=== PATIENT | female | born 1980 | race Caucasian/White ===

== ENCOUNTER 2017-12-31 16:18 | Emergency (ER) | payer MEDICAID, SELFPAY ==
[2017-12-31 16:29] VITALS: BP 115/71; PULSE 118; RESP 18; TEMP 36.8; O2SAT 98
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
--- NOTE | 2017-12-31 17:25 | DI.RPTCT_ITS ---
SYMPTOM/DIAGNOSIS: [facility] CT HEAD AND CERVICAL SPINE: CRANIAL CT: A noncontrast enhanced exam was carried out. There was no evidence of an intra or extra axial hemorrhage. The ventricles are normal. There is no skull fracture. The sinuses are normal. There is no evidence of a mastoid effusion. The soft tissues are unremarkable. SUMMARY: No acute intracranial abnormality is identified. C-SPINE CT: There is no evidence of an acute fracture. There is some reversal of the normal cervical lordosis. There is no evidence of a dislocation. There is no evidence of spinal stenosis. The lung apices are normal. Incidental discovery was made of multiple palatine tonsil calcifications felt to be consistent with tonsilloliths. This finding usually represents the residua of a previous tonsillitis. SUMMARY: Cervical kyphosis likely on the basis of muscular spasm. There is no evidence of an acute fracture or subluxation.
[2017-12-31] MEDS: Ketorolac 60 MG/2 ML VIAL IM (17:31)
[2017-12-31] MEDS: Diazepam 5 MG TAB PO (19:50)
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
[2017-12-31] MEDS: Acetaminophen 500 MG TAB 1000 MG PO (19:51)
[2017-12-31 20:03] VITALS: BP 95/73; PULSE 86; RESP 16; TEMP 37; O2SAT 100
== END 2017-12-31 20:04 | disposition home or self-care (01) ==
PROVIDERS: Emergency Provider Student in an Organized Health Care Education/Training Program; PCP Nurse Practitioner Family
DX: S06.0X0A Concussion without loss of consciousness, initial encounter (principal); S13.4XXA Sprain of ligaments of cervical spine, initial encounter; V49.40XA Driver injured in collision with unspecified motor vehicles in traffic accident, initial encounter; R40.2412 Glasgow coma scale score 13-15, at arrival to emergency department
CPT/HCPCS: 96372; 99285; 70450; 72125; 99283; J1885

== ENCOUNTER 2018-04-24 11:35 | Emergency (ER) | payer MEDICAID, SELFPAY ==
[2018-04-24] VITALS (13 sets, daily range): BP systolic 108–121; BP diastolic 44–75; PULSE 84–107; RESP 11–20; TEMP 36.8; O2SAT 97–100
--- NOTE | 2018-04-24 12:22 | DI.US_ITS ---
SYMPTOMS/DIAGNOSIS: PELVIC CRAMPING, PAIN PELVIC ULTRASOUND: Pelvic ultrasound was performed transabdominally and transvaginally. Please see the accompanying data sheet for measurements of the pelvic structures. Limited scanning of the kidneys is unremarkable. No free fluid identified in the cul-de- sac. There is a mildly heterogeneous appearance of the endometrial stripe which measures about 14 mm in thickness. The ovaries have a normal follicular appearance except for an 18 mm in diameter complex cyst of the left ovary which may represent a hemorrhagic cyst measuring about 18 mm in diameter. CONCLUSION: Mildly heterogeneous endometrial stripe which is a nonspecific finding, probable hemorrhagic left ovarian cyst. Follow up ultrasound recommended in 4-6 weeks.
[2018-04-24] MEDS: Normal Saline 1,000 ML 1000 ML IV (12:35)
--- NOTE | 2018-04-24 12:47 | W.ED.GENAD ---
Discharge Plan Disposition Patient Disposition: HOME Condition: Stable Discharge Details Chief Complaint: Abd Prob Clinical Impression: Pelvic pain, Menorrhagia Primary Care Provider: Margarita Odonnell ED Provider: Ken Cifuentes Home Meds and New Rx's Prescriptions: Continue prochlorperazine maleate 5 MG tablet 1 - 2 tab PO Q8H PRN Qty: 60 RF: 0 amitriptyline 25 MG tablet 25 mg PO HS Qty: 30 RF: 3 cyclobenzaprine 10 mg tablet 10 mg PO hs prn Qty: 30 RF: 3 indomethacin 25 mg capsule 25 mg PO Q8 hours PRN Qty: 30 RF: 2 Discharge Instructions Instructions: Pelvic Pain in Women (ED) Additional Instructions: Return immediately to the emergency department for any significant change in your symptoms, fever chills, or further concerns you may have. Otherwise you should immediately call women's wellness to arrange an appointment for follow-up. Due to medication she received in the emergency department please do not take any further cyclobenzaprine/Flexeril or indomethacin until after midnight this evening. After that point you may continue to take your normal prescribed medications. Stand Alone Forms: Work Release Referrals: Marga Shrestha MD [ [facility] STAFF PHYSICIAN] - (Call the office this afternoon for arrangement of close follow-up appointment) Medical Decision Making Patient presenting to the emergency department for chief complaint of pelvic cramping. Patient states that this is been going on for years and she has seen Dr. Shrestha for with recommendation of partial hysterectomy and concern for possible endometriosis. Patient states heavy menses that ended approximately a week ago and over the past couple days she has had worsening discomfort. She has taken [id number] pain medications, indomethcin, along with Flexeril and has had no relief of symptoms. Physical exam shows lower pelvic tenderness. Patient denies any vaginal symptoms so vaginal exam was deferred at this time. Plan to perform ultrasound imaging of the ovaries and female anatomy, check labs, and give diazepam for cramping and morphine as needed for pain. Labs are reviewed and showed mild decrease of magnesium and otherwise unremarkable. Ultrasound shows some endometrial thickening, mild free fluid, and left luteal cyst. Given that patient has followed up with Dr. Shrestha for this in the past attempted to contact her in regards to the patient. Spoke with Dr. O'Miguel Ángel whom stated patient should remain on NSAID therapy and continue to take cyclobenzaprine as needed . She also requested that patient call the office to arrange close follow-up appointment. Reassessed patient and stated continued discomfort so single dose of 15 mg ketorolac was given. Patient otherwise stable with no new or worsening symptoms patient informed to return for any severe change in condition, fever chills, or further concerns otherwise to follow-up with women's wellness for further treatment. After discussion of diagnosis and plan of care patient has no further needs, questions, or concerns and states clear understanding to return to the emergency department for any worsening symptoms. HPI General Mode of arrival: ambulatory. Date/Time Provider Initiated Documentation: 04/24/18 11:36. Limitations to Documentation: no limitations. Information obtained by: patient and RN notes reviewed. History of Present Illness 37 year old F presents to the emergency department with the chief complaint of pelvic cramping, described as severe and similar to prior episodes, with intensity rated at 8. Quality is described as sharp, and is localized to the abdomen and pelvis. Patient reports radiation to back. Patient started experiencing this day(s) (2) and it has been intermittent. No relieving factors improve symptom(s), No exacerbating factors reported . Patient notes no other symptoms.. Patient did receive the following treatments prior to arrival, NSAID and other (flexeril) Related Data Home Medications Medication Instructions Recorded Confirmed prochlorperazine maleate 1 - 2 tab PO Q8H PRN #60 tab-cap 11/07/16 04/24/18 amitriptyline 25 mg PO HS #30 tab-cap 09/10/17 cyclobenzaprine 10 mg tablet 10 mg PO hs prn #30 tab-cap 02/10/18 04/24/18 indomethacin 25 mg capsule 25 mg PO Q8 hours PRN #30 tab-cap 02/10/18 04/24/18 Previous Rx's Medication Instructions Recorded amitriptyline 25 mg PO HS #30 tab-cap 09/10/17 cyclobenzaprine 10 mg tablet 10 mg PO hs prn #30 tab-cap 02/10/18 indomethacin 25 mg capsule 25 mg PO Q8 hours PRN #30 tab-cap 02/10/18 Allergies Allergy/AdvReac Type Severity Reaction Status Date / Time No Known Allergies Allergy Unverified 04/24/18 11:43 General Stated Complaint: Abd Prob ALONDRA: 3 Review of Systems Constitutional Denies chills and Denies fever(s) Cardiovascular Denies chest pain and Denies dyspnea Respiratory Denies dyspnea Gastrointestinal Reports as per HPI, Reports abdominal pain, Denies melena, Denies change in bowel habits, Denies constipation, Denies diarrhea, Denies nausea and Denies vomiting Genitourinary Reports as per HPI, Reports abnormal menses (heavy menses), Denies hematuria, Denies urinary frequency, Denies sexual dysfunction, Denies urinary incontinence, Denies urinary hesitancy, Denies urinary urgency, Denies vaginal discharge and Denies vaginal dryness Integumentary/Breasts Denies rash PFSH Anxiety Arthritis Attention deficit disorder Chronic back pain Depression Dysmenorrhea History of drug use Hx of abnormal cervical Pap smear Migraine Tobacco use Family History Other Diabetes Heart disease Myocardial infarction Open Carpal Tunnel release Family History Other Diabetes Heart disease Myocardial infarction Medical History Anxiety Arthritis Attention deficit disorder Chronic back pain Depression Dysmenorrhea History of drug use Hx of abnormal cervical Pap smear Migraine Tobacco use Social History household members: significant other number of children: 1 frequency: 1-2 times per week duration: 30-45 minutes/day Smoking/Tobacco Use Status: Current every day alcohol intake: never substance use type: marijuana seatbelt use: always Surgical History Open Carpal Tunnel release Social History household members: significant other number of children: 1 frequency: 1-2 times per week duration: 30-45 minutes/day Smoking/Tobacco Use Status: Current every day alcohol intake: never substance use type: marijuana seatbelt use: always Exam Const General: cooperative Orientation: alert, awake and oriented x3 Resp Effort & Inspection: normal respiratory effort and able to speak in complete sentences Auscultation: clear to auscultation bilaterally Cardio Rate: regular rate Rhythm: regular rhythm Heart Sounds: S1 normal and S2 normal GI Inspection: normal to inspection Palpation: soft, no hepatosplenomegaly, not firm, no guarding, no masses, no pulsatile masses, not rigid, no splenomegaly and tender suprapubicly; not at McBurney's point and Huffman's sign negative Auscultation: normal bowel sounds Back/Spine/Pelvis Back: no CVA tenderness Neuro General: alert, awake, oriented x3, gait normal and moves all extremities Course Vital Signs Temperature 36.8 C 04/24/18 11:39 Pulse 107 H 04/24/18 11:39 Respiratory Rate 18 04/24/18 11:39 Blood Pressure 121/71 04/24/18 11:39 Pulse Oximetry 100 04/24/18 11:39 Temperature 36.8 C 04/24/18 11:39 Temperature Source Skin 04/24/18 11:39 Pulse 107 H 04/24/18 11:39 Respiratory Rate 18 04/24/18 11:39 Blood Pressure 121/71 04/24/18 11:39 Blood Pressure Position Sitting 04/24/18 11:39 Pulse Oximetry 100 04/24/18 11:39 Oxygen Delivery Method Room Air 04/24/18 11:39 Oxygen Flow Rate 0 04/24/18 11:39 Pain Level 8 04/24/18 11:39
[2018-04-24 12:50] LABS: Abs Immature Grans 0.01 k/cumm (0.0-0.09); Absolute Basophil Count 0.04 k/cumm (0.0-0.2); Absolute Eosinophil Count 0.06 k/cumm (0.0-0.7); Absolute Lymphocyte Count 1.72 k/cumm (1.2-3.4); Absolute Monocyte Count 0.27 k/cumm (0.11-0.7); Absolute Neutrophil Count 4.36 k/cumm (1.2-6.7); Basophils % 0.6; Eosinophils % 0.9; HGB 12.8 g/dL (12.0-15.5); Immature Grans % 0.2; Lymphocytes % 26.6; Mean Corp. HGB Concentration 33.7 g/dL (32.0-36.0); Mean Corpuscular Hemoglobin 28.6 pg (27.0-33.0); Mean Platelet Volume 10.9 fL (8.0-11.0); Monocytes % 4.2; Neutrophils % 67.5; Platelet Count 267 x1000/uL (130-400); RBC 4.47 m/cumm (4.00-5.20); RBC Distribution Width 13.3 % (11.7-14.6); White Blood Cell Count 6.46 k/cumm (4.4-10.8)
[2018-04-24 12:52] LABS: Bilirubin Negative (Negative); Blood Trace-intact (Negative); Clarity Clear; Glucose Negative (Negative); Ketones Trace mg/dL (Negative); Leukocyte Esterase Negative (Negative); Nitrite Negative (Negative); Specific Gravity 1.025 (1.005-1.025); Urobilinogen 0.2 EU/dL (Up TO 0.2); pH 6.5 (5-8)
[2018-04-24 13:04] LABS: ALT 22 U/L (12-78); AST 19 U/L (15-37); Albumin 3.5 g/dL (3.4-5.0); Alkaline Phosphatase 63 U/L (46-116); Anion Gap 10.7 mmol/L (3-11); BUN 9 mg/dL (7-18); Bilirubin, Total 0.2 mg/dL (0.2-1.0); CO2 26.3 mmol/L (21.0-32.0); CREATININE 0.74 mg/dL (0.55-1.02); Chloride 102 mmol/L (98-107); Glucose 95 mg/dL (70-100); Magnesium 1.7 mg/dL (1.8-2.4); Potassium 3.6 mmol/L (3.5-5.1); Sodium 139 mmol/L (136-145); Total Protein 7.3 g/dL (6.4-8.2)
[2018-04-24 13:31] LABS: Bacteria Few HPF (Negative); Crystals Negative HPF (Negative); Epithelial Cells Many HPF (Negative)
[2018-04-24 13:32] LABS: C & S Indicated? No; Casts Negative LPF (Negative); Mucus Moderate (Negative)
[2018-04-24] MEDS: MORPHine 10 MG/ML VIAL 2 MG IVP (14:23)
[2018-04-24] MEDS: Magnesium Oxide 400 MG TAB PO (14:23)
[2018-04-24] MEDS: Ketorolac 15 MG/ML VIAL IVP (14:46)
== END 2018-04-24 15:10 | disposition home or self-care (01) ==
PROVIDERS: Emergency Provider Nurse Practitioner Family; PCP Nurse Practitioner Family
DX: R10.2 Pelvic and perineal pain (principal); N92.0 Excessive and frequent menstruation with regular cycle
CPT/HCPCS: 36415; 80053; 81025; 96361; 96374; 96375; 99284; 76830; 76856; 81003; 81015; 83735; 85025; J1885; J2270

== ENCOUNTER 2018-05-05 13:25 | Outpatient (CLI) | payer MEDICAID, SELFPAY ==
[2018-05-05 14:20] LABS: HCT 37.4 % (36.0-46.0); HGB 12.4 g/dL (12.0-15.5); Mean Corp. HGB Concentration 33.2 g/dL (32.0-36.0); Mean Corpuscular Hemoglobin 28.4 pg (27.0-33.0); Mean Corpuscular Volume 85.8 fL (80-95); Mean Platelet Volume 10.7 fL (8.0-11.0); Platelet Count 235 x1000/uL (130-400); RBC 4.36 m/cumm (4.00-5.20); RBC Distribution Width 13.5 % (11.7-14.6); White Blood Cell Count 7.93 k/cumm (4.4-10.8)
[2018-05-05 15:06] LABS: HCG Qual (Serum) Negative
[2018-05-05 15:40] LABS: ALT 19 U/L (12-78); AST 18 U/L (15-37); Albumin 3.7 g/dL (3.4-5.0); Alkaline Phosphatase 59 U/L (46-116); BUN 11 mg/dL (7-18); Bilirubin, Total 0.2 mg/dL (0.2-1.0); CREATININE 0.86 mg/dL (0.55-1.02); Chloride 104 mmol/L (98-107); Glucose 91 mg/dL (70-100); Potassium 4.3 mmol/L (3.5-5.1); Sodium 140 mmol/L (136-145); Total Protein 6.9 g/dL (6.4-8.2)
== END 2018-05-05 13:45 ==
PROVIDERS: PCP Nurse Practitioner Family; Visit Provider Obstetrics & Gynecology Gynecology
DX: R10.2 Pelvic and perineal pain (principal); Z01.818 Encounter for other preprocedural examination
CPT/HCPCS: 36415; 80053; 85027; 86850; 86900; 86901; 84703

== ENCOUNTER 2018-06-23 11:00 | Outpatient (CLI) | payer MEDICAID, SELFPAY ==
[2018-06-23 11:44] LABS: HCT 39.8 % (36.0-46.0); HGB 13.6 g/dL (12.0-15.5); Mean Corp. HGB Concentration 34.2 g/dL (32.0-36.0); Mean Corpuscular Hemoglobin 29.1 pg (27.0-33.0); Mean Platelet Volume 10.6 fL (8.0-11.0); Platelet Count 217 x1000/uL (130-400); RBC 4.68 m/cumm (4.00-5.20)
[2018-06-23 12:43] LABS: HCG Qual (Serum) Negative
[2018-06-23 12:58] LABS: Anion Gap 8.4 mmol/L (3-11); BUN 8 mg/dL (7-18); CO2 28.6 mmol/L (21.0-32.0); CREATININE 0.73 mg/dL (0.55-1.02); Calcium 9.2 mg/dL (8.5-10.1); Chloride 102 mmol/L (98-107); Glucose 100 mg/dL (70-100); Sodium 139 mmol/L (136-145)
== END 2018-06-23 11:20 ==
PROVIDERS: PCP Nurse Practitioner Family; Visit Provider Obstetrics & Gynecology Gynecology
DX: R10.2 Pelvic and perineal pain (principal); Z01.818 Encounter for other preprocedural examination
CPT/HCPCS: 36415; 80048; 85027; 86850; 86900; 86901; 84703

== ENCOUNTER 2018-06-24 10:21 | Observation (INO) | payer MEDICAID, SELFPAY ==
[2018-06-24] VITALS (21 sets, daily range): BP systolic 85–118; BP diastolic 41–71; PULSE 69–104; RESP 12–18; TEMP 36–37.2; O2SAT 93–100
[2018-06-24] MEDS: Lactated Ringers 1,000 ML 125 ML IV ×4 (06:56→20:55)
[2018-06-24] MEDS: Bupivacaine 0.25% Pres-Free 10 ML VIAL (07:35)
--- NOTE | 2018-06-24 09:30 | UTER_PTH ---
PATIENT: Nicole Champagne LOC: [id number] AGE/SX: 37/F ROOM: 230 RE06/24/[address]: Marga Shrestha : 1980 BED: A DIS: 06/25/2018 SPEC #: [id number] RECD: 06/24/18 12:56 STATUS: LEVI REQ #: [id number] YESICA: 06/24/18 09:[address]: Marga Shrestha DEPT: Surgical Specimen RECD BY: Laure Alves ENTERED: 06/24/18 12:57 SP TYPE: UTER OTHR DR: Margarita Odonnell Tissues: 1 - UTERUS W OR W/O OVARIES(NOT TUMOR/PROLAPSE) Procedures: GROSS AND MICRO LEVEL 5 Comments: [id number]
[2018-06-24] MEDS: Bupivacaine 0.25% Pres-Free 30 ML VIAL (09:55)
[2018-06-24] MEDS: fentaNYL 100 MCG/2 ML VIAL IVP ×3 (11:04→11:27)
--- NOTE | 2018-06-24 11:09 | ROE_ITS ---
Date of service: 06/24/18 Time of Service: 10:42 Operative Note DATE OF PROCEDURE: 06/24/18 PRE-OP DIAGNOSIS: Abnormal uterine bleeding, dysmenorrhea POST-OP DIAGNOSIS: same PROCEDURE: Laparoscopic assisted vaginal hysterectomy with bilateral salpingectomy SURGEON: Marga Shrestha ASSISTING SURGEON: Davidson Robert ANESTHESIA: GETA and spinal ESTIMATED BLOOD LOSS: 150 PATHOLOGY: other (Uterus and both fallopian tubes) COMPLICATIONS: None Patient was transported to: PACU Patient's condition: stable Indications: 37-year-old 4 para 1 female with approximately 1 year of w orsening dysmenorrhea and irregular bleeding. Patient is not a candidate for medical therapy secondary tobacco use and has declined use of an IUD or a endometrial ablation. Findings: Small uterus midposition normal adnexa normal upper abdomen filmy adhesions of the l omentum to the right pelvic sidewall at the pelvic brim. No evidence of endometriosis. Procedure Description: Patient was taken to the operating room where she was placed in the sitting position and spinal anesthesia was administered without difficulty. She was then placed in the dorsal supine position and general endotracheal anesthesia was performed. She was then placed in the dorsal lithotomy position with her legs and neurologically neutral position using yellowfin stirrups. She was prepped and draped in the usual sterile fashion. A Kirby was placed to gravity drainage. A single-toothed uterine manipulator was placed in through the cervix and left in place. Attention was then turned to the patient's abdomen where the umbilical fold was infiltrated with 1% lidocaine with a dilute solution of epinephrine scalpel was used to incise the umbilicus in a vertical fashion through this incision a [place] clamp was placed and the nuchal ligament was grasped tented up a similar technique was carried out on the more caudal portion of the umbilical ligament. The cephalad [place] was then re-approximated and a scalpel was used to incise the umbilical ligament and a transverse fashion this allowed entry into the abdomen. Rectus fascia was sutured with 2-0 Vicryl sutures which were held long to attach the Estrella umbilical port. Once the umbilical port was placed the abdomen was insufflated with carbon dioxide and a pneumoperitoneum achieved. Intra-abdominal placement was confirmed by use of the laparoscope. Patient was placed in Trendelenburg and 2 5 mm ports were placed under direct visualization approximately 3 cm medial to the superior area anterior iliac crest after after the sites had been infiltrated with 1% lidocaine with a dilute solution of epinephrine. The bowels were swept away from the pelvis cul-de-sac with the above noted findings. A LigaSure cautery device was used to grasp the left round ligament cauterized and transected the anterior leaf of the broad ligament was then sequentially grasped cauterized and transected to the level of the vesicouterine fold. The left vertical left portion of the vesico-uterine fold was tented up, incised, and cauterized. This allowed the bladder to be dissected off of the lower uterine segment. Attention was then turned to the left mesosalpinx which was incised using the LigaSure bipolar device cauterized and transected to the level of the uterine cornua the left fallopian tube was transected at the uterine cornua and placed into the anterior cul-de-sac The uterine ovarian ligament was then clamped cauterized and transected to the level of the left uterine arteries. Attention was then turned to the right round ligament which in a similar fashion was clamped cauterized and transected and the remaining broad ligament incised to the level of the uterine midline. This allowed the bladder flap to be created and the uterus was safely away from the operative field. Right fallopian tube was identified followed out to its fimbriated end and the attachments to the mesosalpinx clamped cauterized and transected. The right fallopian tube was not amputated from the right uterine cornua. Lastly the right uterine ovarian ligament was grasped transected and cauterized allowing access and to the posterior cul-de-sac where we had excellent visualization of the right uterine arteries. Uterine arteries were cauterized and transected in a similar fashion. The point there was excellent blanching of the uterine tissue and the decision was made to proceed with the vaginal portion of the hysterectomy. Pneumoperitoneum was deflated and a weighted speculum was placed in the vagina. The anterior portion of the cervix was grasped with a double-tooth clamp and the body of the cervix circumferentially infiltrated with 1% lidocaine with dilute solution of epinephrine. The cervix was then circumferentially incised using Bovie electrocautery. The posterior cul-de-sac was entered sharply with curved curved Kay scissors the long billed speculum was placed through this incision and held in place for the remainder of the case. Entry of the anterior cul-de-sac was performed without difficulty and through the incision and a Mary retractor was placed and held to retract the bladder away from the operative field. The remaining right and left broad ligament were sequentially clamped cut and tied using 0 Vicryl. Uterus was then freed from all pedicles and delivered from the vagina. 2 fallopian tubes were also located in the posterior cul-de-sac and passed off of the operative field. The peritoneal surface of the uterus of the vaginal cuff was closed with 2-0 Vicryl in a pursestring fashion and the vaginal cuff was closed with a running suture of 0 Vicryl in a vertical fashion. Attention was then turned to the patient's abdomen where pneumoperitoneum was once again established using carbon dioxide gas and inspection of the pedicles were was performed all pedicles were noted to be hemostatic. There appeared to be satisfactory closure of the vaginal cuff. The pneumoperitoneum was reduced all trochars were removed and the fascia of the umbilical incision was reapproximated with 3 sutures of 0 Vicryl. Skin of the umbilical incision was reapproximated with a subcuticular suture of 4-0 Monocryl. All sponge, lap, and needle counts were correct x2 patient received 2 g of Ancef upon entry into the operating suite all sponge lap needle counts are correct x2
[2018-06-24] MEDS: oxyCODONE 5 mg/Acetaminophen 325 mg TAB PO ×2 (12:50→16:57)
--- NOTE | 2018-06-24 16:01 | NUR.NOTE ---
Nursing Note:06/24/18-Admited from PACU to room 230 via stretcher. Oriented to room and call bryan system. Minimal step transfer from stretcher to bed w min assist to SBG. LS clear. BS + denies nausea. Pain is stated as 8/10 will medicated when has something in her tummy. She agrees with this since she had pain med in PACU. Will start w gingerale and crackers to promote this. Kirby to gravity in very pale & clear. ABD is soft and tender. Trochars are bilat bruised and glued. Umbilicus is covered w bandaid and CDI. SCD's applied. sipping on PO clear. LR @125. Also has IID both sites WNL's in LUE. PP+. See VS intervention.
[2018-06-24] MEDS: Ketorolac 30 MG/ML VIAL IVP ×2 (16:19→20:55)
[2018-06-24] MEDS: Normal Saline Flush 10 ML SYR IV (16:20)
[2018-06-24] MEDS: Docusate Sodium 100 MG CAP PO (19:49)
[2018-06-24] MEDS: oxyCODONE 5 MG TAB PO (22:26)
[2018-06-25 03:35] VITALS: BP 106/58; PULSE 79; RESP 16; TEMP 36.7; O2SAT 97
[2018-06-25] MEDS: oxyCODONE 5 MG TAB PO ×2 (03:35→08:18)
[2018-06-25] MEDS: Ketorolac 30 MG/ML VIAL IVP (03:36)
[2018-06-25] MEDS: Lactated Ringers 1,000 ML 125 ML IV (06:39)
--- NOTE | 2018-06-25 07:28 | W.PM.DS.N ---
Date of service: 06/24/18 Time of Service: 07:28 DS: Diagnosis Discharge Diagnosis (1) Pelvic pain: Status: Chronic (2) Menorrhagia: Status: Acute (3) Dysmenorrhea: Status: Acute Discharge Plan Disposition Patient Disposition: HOME Condition: Fair Discharge Details Reason For Visit: LAPAROSCOPIC ASSISTED VAGINAL HYSTERECTOMY Admit Date/Time: 06/24/18 12:03 Admit Provider: Marga Shrestha Attending Provider: Marga Shrestha Primary Care Provider: Margarita Odonnell Hospital Course Hospital Course: Patient was admitted the morning of surgery and underwent the above-stated procedure along with a bilateral salpingectomy. Postop course was uncomplicated she was discharged home on postop day 1 tolerating a regular diet voiding spontaneously incisions clean dry and intact with small amount of ecchymosis at the periumbilical incision. A.m. labs are currently pending. Home Meds and New Rx's Prescriptions: No Action ibuprofen 600 mg tablet 600 mg PO QID PRN (Reason: pain) Qty: 60 RF: 0 prochlorperazine maleate 5 MG tablet 1 - 2 tab PO Q8H PRN Qty: 60 RF: 0 cyclobenzaprine 10 mg tablet 10 mg PO hs prn Qty: 30 RF: 3 indomethacin 25 mg capsule 25 mg PO Q8 hours PRN Qty: 30 RF: 2 oxycodone 10 mg tablet 10 mg PO Q6H MDD 4 PRN (Reason: pain) Qty: 20 RF: 0 Discharge Instructions Instructions: Laparoscopic Hysterectomy (DC) Additional Instructions: Postoperative Instructions Outpatient Gynecology PLEASE LIMIT YOUR ACTIVITY Limit stair climbing for your first week at home. You may increase your activity and stair climbing after that, gradually, as tolerated. YOU MAY Shower and wash your hair at any time. If you have an abdominal incision, you may also wash your incision with warm water and soap, dry well. You may also use peroxide to clean your incision. AFTER YOUR FIRST WEEK AT HOME You may do light housekeeping, leave the house, and ride in a car. You may drive a car yourself for short trips after (2) weeks. To help with your recovery, you should resume daily activities as soon as you feel able. You will probably be able to return to work 4-6 weeks after your surgery. AVOID Vigorous exercise or heavy lifting for (6) six weeks after your surgery. Please abstain from intercourse, douching, and using tampons for (4) four weeks or until your physician indicates that this is acceptable. YOU MAY HAVE Some vaginal bleeding and/or discharge for (2) two to (3) three weeks after your surgery. Use pads only. Please contact the office if you have any sudden, heavy vaginal bleeding. TO AVOID CONSTIPATION You may use over the counter products, for example; Metamucil, Fibercon, Colace, or Milk of Magnesia. Also, eat a well balanced, high fiber diet and drink plenty of liquids. You may also use a girdle or abdominal support, if you wish for comfort, but it is not required. CALL THE OFFICE If you have any signs of infection, such as; a temperature greater than 100.4F, general ill feelings, redness or discharge at the site of the incision, or foul smelling vaginal discharge. If you experience any new symptoms, such as; nausea, vomiting, abdominal swelling, or severe pain. As soon as you are able to, schedule a follow-up appointment for (4) four to (6) six weeks from surgery. Please make the appointments with the physician that performed your surgery. MEDICATIONS You may use ibuprofen 600 mg every (6) six hours for pain- Advil, Motrin IB, and Ibuprofen that you buy without a prescription are the same medicine as prescribed Motrin or Ibuprofen. The kind you buy without prescription are 200mg so you may take 3 of these at a time if you did not receive a prescription for Ibuprofen. You been given a prescription for oxycodone 10 mg 1 tablet every 6 hours as needed for pain. May decrease the tablet strength to 5 mg by breaking in half. Maximum of 4 tablets/day. Take it along with the ibuprofen for better pain relief. Please call the office with any questions or concerns at [phone]. Stand Alone Forms: Nursing Discharge Form Referrals: Marga Shrestha MD [ [facility] STAFF PHYSICIAN] - Activity:: Activity as Tolerated Equipment/Supplies:: No Equipment Needed Diet:: As Tolerated Discharge Orders Discharge Orders: Discharge Order (Routine); Ordered 06/25/18 Ordered By: Marga Shrestha DS: Data Vitals/I&O Vitals and I&O: Vital Signs Temperature 98.1 F 06/25/18 03:35 Temperature Source Skin 06/25/18 03:35 Pulse 79 06/25/18 03:35 Pulse Rhythm Regular 06/25/18 03:42 Respiratory Rate 16 06/25/18 03:35 Respiratory Effort Non-Labored 06/25/18 03:42 Respiratory Depth Normal 06/25/18 03:42 Respiratory Pattern Normal 06/25/18 03:42 Blood Pressure 106/58 L 06/25/18 03:35 Pulse Oximetry 97 06/25/18 03:35 Respiratory End-tidal CO2 47 06/24/18 11:15 Oxygen Delivery Method Room Air 06/25/18 03:35 Oxygen Flow Rate 0 06/25/18 03:35 Pain Level 7 06/25/18 03:36 Comment 06/25/18 03:35 Intake & Output 06/24/18 06/24/18 06/25/18 11:59 23:59 11:59 Intake Total 1618.75 / 3718.75 2100 / 3718.75 991.25 / 991.25 Output Total 600 / 3075 2475 / 3075 1100 / 1100 Balance 1018.75 / 643.75 -375 / 643.75 -108.75 / -108.75 Weight 134 lb 4.184 oz Intake: IV 1518.75 / 3018.75 1500 / 3018.75 991.25 / 991.25 Oral 100 / 700 600 / 700 Output: Urine 400 / 2875 2475 / 2875 1100 / 1100 Estimated Blood Loss 200 / 200 Other: Urine Color Yellow Yellow Yellow Urine Appearance Clear Clear Clear Urine Odor None Normal Emesis Description None Voiding Methods Toilet Labs on day of discharge: Labs from last 24 hours 06/25/18 06/25/18 05:35 05:35 WBC Pending RBC Pending Hgb Pending Hct Pending MCV Pending MCH Pending MCHC Pending RDW Pending Plt Count Pending MPV Pending Sodium Pending Potassium Pending Chloride Pending Carbon Dioxide Pending Anion Gap Pending BUN Pending Creatinine Pending Estimated GFR/1.73 m2 Pending Glucose Pending Calcium [facility]ending [facility] Social History household members: significant other number of children: 1 frequency: 1-2 times per week duration: 30-45 minutes/day Smoking/Tobacco Use Status: Current every day alcohol intake: never substance use type: marijuana seatbelt use: always
[2018-06-25 07:30] VITALS: BP 107/67; PULSE 70; RESP 18; TEMP 36.7; O2SAT 98
--- NOTE | 2018-06-25 07:34 | DSE_ITS ---
Date of service: 06/24/18 Time of Service: 07:28 DS: Diagnosis Discharge Diagnosis (1) Pelvic pain: Status: Chronic (2) Menorrhagia: Status: Acute (3) Dysmenorrhea: Status: Acute Discharge Plan Disposition Patient Disposition: HOME Condition: Fair Discharge Details Reason For Visit: LAPAROSCOPIC ASSISTED VAGINAL HYSTERECTOMY Admit Date/Time: 06/24/18 12:03 Admit Provider: Marga Shrestha Attending Provider: Marga Shrestha Primary Care Provider: Margarita Odonnell Hospital Course Hospital Course: Patient was admitted the morning of surgery and underwent the above-stated procedure along with a bilateral salpingectomy. Postop course was uncomplicated she was discharged home on postop day 1 tolerating a regular diet voiding spontaneously incisions clean dry and intact with small amount of ecchymosis at the periumbilical incision. A.m. labs are currently pending. Home Meds and New Rx's Prescriptions: No Action ibuprofen 600 mg tablet 600 mg PO QID PRN (Reason: pain) Qty: 60 RF: 0 prochlorperazine maleate 5 MG tablet 1 - 2 tab PO Q8H PRN Qty: 60 RF: 0 cyclobenzaprine 10 mg tablet 10 mg PO hs prn Qty: 30 RF: 3 indomethacin 25 mg capsule 25 mg PO Q8 hours PRN Qty: 30 RF: 2 oxycodone 10 mg tablet 10 mg PO Q6H MDD 4 PRN (Reason: pain) Qty: 20 RF: 0 Discharge Instructions Instructions: Laparoscopic Hysterectomy (DC) Additional Instructions: Postoperative Instructions Outpatient Gynecology PLEASE LIMIT YOUR ACTIVITY * Limit stair climbing for your first week at home. * You may increase your activity and stair climbing after that, gradually, as tolerated. YOU MAY * Shower and wash your hair at any time. * If you have an abdominal incision, you may also wash your incision with warm water and soap, dry well. You may also use peroxide to clean your incision. AFTER YOUR FIRST WEEK AT HOME * You may do light housekeeping, leave the house, and ride in a car. * You may drive a car yourself for short trips after (2) weeks. * To help with your recovery, you should resume daily activities as soon as you feel able. * You will probably be able to return to work 4-6 weeks after your surgery. AVOID * Vigorous exercise or heavy lifting for (6) six weeks after your surgery. * Please abstain from intercourse, douching, and using tampons for (4) four weeks or until your physician indicates that this is acceptable. YOU MAY HAVE * Some vaginal bleeding and/or discharge for (2) two to (3) three weeks after your surgery. * Use pads only. * Please contact the office if you have any sudden, heavy vaginal bleeding. TO AVOID CONSTIPATION * You may use over the counter products, for example; Metamucil, Fibercon, Colace, or Milk of Magnesia. * Also, eat a well balanced, high fiber diet and drink plenty of liquids. * You may also use a girdle or abdominal support, if you wish for comfort, but it is not required. CALL THE OFFICE * If you have any signs of infection, such as; a temperature greater than 100.4F, general ill feelings, redness or discharge at the site of the incision, or foul smelling vaginal discharge. * If you experience any new symptoms, such as; nausea, vomiting, abdominal swelling, or severe pain. * As soon as you are able to, schedule a follow-up appointment for (4) four to (6) six weeks from surgery. * Please make the appointments with the physician that performed your surgery. MEDICATIONS * You may use ibuprofen 600 mg every (6) six hours for pain- Advil, Motrin IB, and Ibuprofen that you buy without a prescription are the same medicine as prescribed Motrin or Ibuprofen. The kind you buy without prescription are 200mg so you may take 3 of these at a time if you did not receive a prescription for Ibuprofen. * You been given a prescription for oxycodone 10 mg 1 tablet every 6 hours as needed for pain. May decrease the tablet strength to 5 mg by breaking in half. Maximum of 4 tablets/day. Take it along with the ibuprofen for better pain relief. Please call the office with any questions or concerns at [phone]. Stand Alone Forms: Nursing Discharge Form Referrals: Marga Shrestha MD [ [facility] STAFF PHYSICIAN] - Activity:: Activity as Tolerated Equipment/Supplies:: No Equipment Needed Diet:: As Tolerated Discharge Orders Discharge Orders: Discharge Order (Routine); Ordered 06/25/18 Ordered By: Marga Shrestha DS: Data Vitals/I&O Vitals and I&O: Vital Signs Temperature 98.1 F 06/25/18 03:35 Temperature Source Skin 06/25/18 03:35 Pulse 79 06/25/18 03:35 Pulse Rhythm Regular 06/25/18 03:42 Respiratory Rate 16 06/25/18 03:35 Respiratory Effort Non-Labored 06/25/18 03:42 Respiratory Depth Normal 06/25/18 03:42 Respiratory Pattern Normal 06/25/18 03:42 Blood Pressure 106/58 L 06/25/18 03:35 Pulse Oximetry 97 06/25/18 03:35 Respiratory End-tidal CO2 47 06/24/18 11:15 Oxygen Delivery Method Room Air 06/25/18 03:35 Oxygen Flow Rate 0 06/25/18 03:35 Pain Level 7 06/25/18 03:36 Comment 06/25/18 03:35 Intake & Output 06/24/18 06/24/18 06/25/18 11:59 23:59 11:59 Intake Total 1618.75 / 3718.75 2100 / 3718.75 991.25 / 991.25 Output Total 600 / 3075 2475 / 3075 1100 / 1100 Balance 1018.75 / 643.75 -375 / 643.75 -108.75 / -108.75 Weight 134 lb 4.184 oz Intake: IV 1518.75 / 3018.75 1500 / 3018.75 991.25 / 991.25 Oral 100 / 700 600 / 700 Output: Urine 400 / 2875 2475 / 2875 1100 / 1100 Estimated Blood Loss 200 / 200 Other: Urine Color Yellow Yellow Yellow Urine Appearance Clear Clear Clear Urine Odor None Normal Emesis Description None Voiding Methods Toilet Labs on day of discharge: Labs from last 24 hours 06/25/18 06/25/18 05:35 05:35 WBC Pending RBC Pending Hgb Pending Hct Pending MCV Pending MCH Pending MCHC Pending RDW Pending Plt Count Pending MPV Pending Sodium Pending Potassium Pending Chloride Pending Carbon Dioxide Pending Anion Gap Pending BUN Pending Creatinine Pending Estimated GFR/1.73 m2 Pending Glucose Pending Calcium Pending PFSH Social History household members: significant other number of children: 1 frequency: 1-2 times per week duration: 30-45 minutes/day Smoking/Tobacco Use Status: Current every day alcohol intake: never substance use type: marijuana seatbelt use: always
[2018-06-25 07:46] LABS: HGB 12.6 g/dL (12.0-15.5); Mean Corp. HGB Concentration 33.2 g/dL (32.0-36.0); Mean Corpuscular Hemoglobin 28.6 pg (27.0-33.0); Mean Corpuscular Volume 86.2 fL (80-95); Mean Platelet Volume 10.9 fL (8.0-11.0); Platelet Count 216 x1000/uL (130-400); RBC 4.41 m/cumm (4.00-5.20); RBC Distribution Width 13.2 % (11.7-14.6); White Blood Cell Count 9.03 k/cumm (4.4-10.8)
[2018-06-25 07:49] LABS: BUN 6 mg/dL (7-18); CREATININE 0.67 mg/dL (0.55-1.02); Calcium 8.8 mg/dL (8.5-10.1); Chloride 106 mmol/L (98-107); Glucose 101 mg/dL (70-100); Potassium 4.2 mmol/L (3.5-5.1); Sodium 141 mmol/L (136-145)
[2018-06-25] MEDS: Docusate Sodium 100 MG CAP PO (08:18)
[2018-06-25] MEDS: Ibuprofen 600 MG TAB PO (10:16)
== END 2018-06-25 10:32 | disposition home or self-care (01) ==
LOC: MS 06-25 05:09
PROVIDERS: Admitting Provider Obstetrics & Gynecology Gynecology; PCP Nurse Practitioner Family; Visit Provider Obstetrics & Gynecology Gynecology
PROC: 0UT9FZZ Resection of Uterus, Via Natural or Artificial Opening With Percutaneous Endoscopic Assistance (ICD-10-PCS; CPT 58552; principal; 2018-06-24 07:30)
DX: R10.2 Pelvic and perineal pain (principal); N92.1 Excessive and frequent menstruation with irregular cycle; N94.6 Dysmenorrhea, unspecified; D26.1 Other benign neoplasm of corpus uteri; F17.210 Nicotine dependence, cigarettes, uncomplicated; N83.8 Other noninflammatory disorders of ovary, fallopian tube and broad ligament; Z90.710 Acquired absence of both cervix and uterus; Z90.79 Acquired absence of other genital organ(s)
CPT/HCPCS: 58552; 36415; 80048; 85027; 88307; G0378; J0690; J1100; J1200; J1885; J2250; J2405; J3010

== ENCOUNTER 2018-09-22 14:54 | Emergency (ER) | payer MEDICAID, SELFPAY ==
[2018-09-22 14:57] VITALS: BP 110/68; PULSE 105; RESP 18; TEMP 37; O2SAT 97
--- NOTE | 2018-09-22 15:06 | W.ED.GENAD ---
Discharge Plan Disposition Patient Disposition: HOME Condition: Fair Discharge Details Chief Complaint: EarProblem Clinical Impression: Acute ear pain Primary Care Provider: Margarita Odonnell ED Provider: Maryellen Enrique Home Meds and New Rx's Prescriptions: Continued ibuprofen 600 mg tablet 600 mg PO QID PRN (Reason: pain) Qty: 60 RF: 0 prochlorperazine maleate 5 MG tablet 1 - 2 tab PO Q8H PRN Qty: 60 RF: 0 cyclobenzaprine 10 mg tablet 10 mg PO hs prn Qty: 30 RF: 3 indomethacin 25 mg capsule 25 mg PO Q8 hours PRN Qty: 30 RF: 2 Discharge Instructions Instructions: Earache (ED) Additional Instructions: At this time there is no evidence of infection on exam. This may be associated with eustachian tube disfunction as we discussed. Encourage hydration. Tylenol and/or Ibuprofen as needed for discomfort. Nasal saline may be of benefit. Please follow up with primary care at the end of the week if not improved, seek care urgently once again with new/worsening symptoms. Referrals: Margarita Odonnell [Primary Care Provider] - Medical Decision Making Patient is a 38 year old female with history of anxiety, ADD, depression, migraines, presenting today with c/c of right ear pain. She reports mild pain yesterday that has increased today. States she has had mild congestion but no other sxs of URI. Denies SOB, cough, CP, fevers/chills, no GI upset. She denies change in her hearing. On exam, she appears nontoxic. Ear has scant amount of free fluid visualized behind the TM, no bulging or loss of landmarks, no erythema. Sinuses nontender. No pain over mastoid. At this point, no evidence of infection. Advised may be associated with eustachian tube disfunction. Advised close f/u with PCP, she will call today to schedule appointmeint in the next week if not improving. We discussed new/worsening symptoms and when to seek care urgently again. All of her questions adn concerns were addressed, she is in agreement with this plan. She has not used any OTC for pain, will given Tylenol and Ibuprofen here. HPI General Mode of arrival: ambulatory. Date/Time Provider Initiated Documentation: 09/22/18 14:56. Limitations to Documentation: no limitations. Information obtained by: patient and RN notes reviewed. History of Present Illness 38 year old F presents to the emergency department with the chief complaint of right ear pain, described as moderate, with intensity rated at 7. Quality is described as aching, Patient reports no radiation. Patient started experiencing this day(s) (1) and it has been constant. No relieving factors improve symptom(s), No exacerbating factors reported . Patient notes denies chest pain, cough, diaphoresis, fever/chills, headaches, nausea/vomiting, rash and shortness of breath. Patient did receive the following treatments prior to arrival, none Related Data Home Medications Medication Instructions Recorded Confirmed prochlorperazine maleate 1 - 2 tab PO Q8H PRN #60 tab-cap 11/07/16 09/22/18 cyclobenzaprine 10 mg tablet 10 mg PO hs prn #30 tab-cap 02/10/18 09/22/18 indomethacin 25 mg capsule 25 mg PO Q8 hours PRN #30 tab-cap 02/10/18 09/22/18 ibuprofen 600 mg tablet 600 mg PO QID PRN #60 tab 05/05/18 09/22/18 Previous Rx's Medication Instructions Recorded cyclobenzaprine 10 mg tablet 10 mg PO hs prn #30 tab-cap 02/10/18 indomethacin 25 mg capsule 25 mg PO Q8 hours PRN #30 tab-cap 02/10/18 ibuprofen 600 mg tablet 600 mg PO QID PRN #60 tab 05/05/18 Allergies Allergy/AdvReac Type Severity Reaction Status Date / Time No Known Allergies Allergy Unverified 09/22/18 15:02 General Stated Complaint: EarProblem ALONDRA: 4 Review of Systems Constitutional Reports as per HPI, Denies chills, Denies fever(s), Denies headache(s) and Denies poor appetite Eyes Reports as per HPI, Denies eye discharge and Denies irritation ENT Reports as per HPI, Denies vertigo, Denies dizziness, Denies ear discharge, Reports otalgia, Denies headache(s), Denies hoarseness, Denies sinus pain, Denies sinus pressure and Denies sore throat Cardiovascular Reports as per HPI, Denies chest pain and Denies dyspnea Respiratory Reports as per HPI, Denies cough and Denies dyspnea Gastrointestinal Reports as per HPI, Denies abdominal pain, Denies change in bowel habits, Denies nausea and Denies vomiting Integumentary/Breasts Reports as per HPI and Denies rash Neurologic Reports as per HPI, Denies vertigo, Denies dizziness and Denies headache(s) [facility] Medical History History of drug use (Resolved) Anxiety (Chronic) Arthritis (Chronic) Attention deficit disorder (Chronic) Depression (Chronic) Chronic back pain (Chronic) Tobacco use (Chronic) Pelvic pain (Resolved) Continuous chewing tobacco dependence (Chronic 10/07/13) 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 (Acute 02/10/17) Intractable migraine with aura with status migrainosus (Chronic 08/25/17) Carpal tunnel syndrome on both sides (Acute 04/09/17) Dysmenorrhea (Resolved) Hx of abnormal cervical Pap smear (Resolved) Migraine (Resolved) Migraine (Resolved 10/07/13) Surgical History S/P laparoscopic assisted vaginal hysterectomy (LAVH) (Resolved) Open Carpal Tunnel release (Resolved) Social History Smoking/Tobacco Use Status: Current every day Tobacco Type: cigarettes Smoking cigarettes per day: 10 Alcohol Intake: never Drug use: Occasionally Substance use type: marijuana Household members: significant other Number of Children: 1 What type of physical activity do you participate in: walking Duration: 30-45 minutes/day Frequency: 1-2 times per week Seatbelt use: always Do you feel safe at home: Yes Do you feel safe in your relationship?: Yes Exam Const General: cooperative, healthy appearing, comfortable, no acute distress, well developed and well groomed Nutritional Appearance: average body habitus and well nourished Orientation: alert and awake [facility] Head: normal to inspection, normocephalic and atraumatic Ears: hearing grossly normal bilaterally, external ears normal, TM's normal bilaterally, mastoids normal and no periauricular adenopathy General nose exam: external nose normal and nares normal Face and sinus: normal facial exam, sinuses nontender and face symmetric Mouth: oral mucosae normal, lip normal, tongue normal, oropharynx normal and moist mucous membranes Teeth and gingiva: dentition normal Throat: posterior oropharynx normal, tonsils normal and uvula midline Eyes General: appearance normal, both eyes and all related structures Neck Neck: normal visual inspection, full ROM, no lymphadenopathy and no meningeal signs Resp Effort & Inspection: normal respiratory effort, able to speak in complete sentences and no respiratory distress Auscultation: clear to auscultation bilaterally, no rales, no rhonchi and no wheezes Cardio Rate: regular rate Rhythm: regular rhythm Heart Sounds: S1 normal and S2 normal Skin General skin exam: no rashes or lesions noted Neuro General: alert and awake Cognition: normal cognition Speech: speech normal Gait: normal gait Psych Appearance: grossly normal and well kempt Mental Status: mental status grossly normal Speech and Movement: speech and movement normal Course Vital Signs Temperature 37 C 09/22/18 14:57 Pulse 105 H 09/22/18 14:57 Respiratory Rate 18 09/22/18 14:57 Blood Pressure 110/68 09/22/18 14:57 Pulse Oximetry 97 09/22/18 14:57 Temperature 37 C 09/22/18 14:57 Temperature Source Temporal Artery Scan 09/22/18 14:57 Pulse 105 H 09/22/18 14:57 Respiratory Rate 18 09/22/18 14:57 Respiratory Effort Non-Labored 09/22/18 15:01 Blood Pressure 110/68 09/22/18 14:57 Blood Pressure Position Sitting 09/22/18 14:57 Pulse Oximetry 97 09/22/18 14:57 Oxygen Delivery Method Room Air 09/22/18 14:57 Oxygen Flow Rate 0 09/22/18 14:57 Pain Level 7 09/22/18 15:03
[2018-09-22] MEDS: Acetaminophen 325 MG TAB 650 MG PO (15:22)
[2018-09-22] MEDS: Ibuprofen 600 MG TAB PO (15:22)
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
== END 2018-09-22 15:25 | disposition home or self-care (01) ==
PROVIDERS: Emergency Provider Physician Assistant; PCP Nurse Practitioner Family
DX: H92.01 Otalgia, right ear (principal); R09.81 Nasal congestion
CPT/HCPCS: 99282

== ENCOUNTER 2019-04-27 11:47 | Emergency (ER) | payer SELFPAY ==
[2019-04-27 11:56] VITALS: BP 95/68; RESP 18; TEMP 37.6; O2SAT 100
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
[2019-04-27] MEDS: Balanced Salt Solution 15 ML BTL (13:18)
[2019-04-27] MEDS: Fluorescein STRIPS 100/BOX 1 MG (13:19)
[2019-04-27] MEDS: Tetracaine 0.5% 4 ML BTL (13:20)
== END 2019-04-27 12:55 | disposition home or self-care (01) ==
PROVIDERS: Emergency Provider Physician Assistant; PCP Nurse Practitioner Family
DX: H57.11 Ocular pain, right eye (principal); T60.1X1A Toxic effect of halogenated insecticides, accidental (unintentional), initial encounter; H57.89 Other specified disorders of eye and adnexa
CPT/HCPCS: 99283

== ENCOUNTER 2019-08-17 01:57 | Outpatient (CLI) | payer MEDICAID, SELFPAY ==
--- NOTE | 2019-08-17 14:00 | DI.US_ITS ---
EXAM: MG MAMMO DIAGNOSTIC BI AND US BREAST LT COMPLETE CLINICAL HISTORY: PAINFUL LEFT CYSTIC BREAST MASS, N63.0 TECHNIQUE: Ultrasound performed using standard protocol. COMPARISON: Prior mammogram of May 2014 FINDINGS: Mammography and left breast ultrasound are interpreted in conjunction. There is reportedly a painful mass-like area in the upper outer quadrant of the left breast. The breasts are heterogeneously dens e with asymmetric radiodensity in upper outer quadrant of the left breast grossly unchanged from prio r mammogram of May 2014. No new mass or clumped microcalcification identified mammographically. Additional mammographic views of the upper outer quadrant of the left breast show no focal mass. [facility] ultrasound shows dense fibroglandular tissue but no discrete mass or cyst. IMPRESSION: No specific evidence of malignancy at this time. Follow-up mammogram suggested in 12 months. Please note that the negative mammogram and ultrasound do not exclude the possibility of breast carcinoma a nd should not preclude biopsy of any clinically suspicious palpable breast mass. BI-RADS Cat 2 - Benign Findings Breast Density - Category C - Heterogeneously dense DATA REPOSITORY:
== END 2019-08-17 02:17 ==
PROVIDERS: PCP Nurse Practitioner Family; Visit Provider Obstetrics & Gynecology Gynecology
DX: N63.21 Unspecified lump in the left breast, upper outer quadrant (principal)
CPT/HCPCS: 76642; 77062; 77066; G0279

== ENCOUNTER 2020-08-11 07:44 | Outpatient (CLI) | payer MEDICAID, SELFPAY ==
[2020-08-11 12:10] LABS: Source Nasal/Nares
[2020-08-11 16:04] LABS: ALT 38 U/L (14-59); AST 22 U/L (15-37); Albumin 3.8 g/dL (3.4-5.0); Alkaline Phosphatase 40 U/L (46-116); Anion Gap 8.2 mmol/L (3-11); BUN 10 mg/dL (7-18); Bilirubin, Total 0.4 mg/dL (0.2-1.0); CO2 28.8 mmol/L (21.0-32.0); CREATININE 0.8 mg/dL (0.55-1.02); Calcium 9.6 mg/dL (8.5-10.1); Chloride 105 mmol/L (98-107); Folate 18.7 ng/mL (8.6-20.0); Glucose 107 mg/dL (74-106); Potassium 4.2 mmol/L (3.5-5.1); Sodium 142 mmol/L (136-145); TSH (W/Ref FT4) 0.47 uIU/mL (0.36-3.74); Total Protein 7.1 g/dL (6.4-8.2); Vitamin B12 675 pg/mL (193-986)
[2020-08-11 20:45] LABS: COVID-19 PCR Negative (Negative)
[2020-08-14 11:16] LABS: Lyme Ab w Rflx to Lyme Confirm Negative (Negative)
[2020-08-14 18:56] LABS: Anaplasma phagocytophilum Negative (Negative); B. miyamotoi PCR Negative (Negative); Babesia divergens/MO-1 Negative (Negative); Babesia duncani Negative (Negative); Babesia microti Negative (Negative); Ehrlichia chaffeensis Negative (Negative); Ehrlichia ewingii/canis Negative (Negative); Ehrlichia muris eauclairensis Negative (Negative)
== END 2020-08-11 07:45 | disposition home or self-care (01) ==
LOC: LBO 07:46
PROVIDERS: PCP Nurse Practitioner Family; Visit Provider Obstetrics & Gynecology Gynecology
DX: F41.9 Anxiety disorder, unspecified (principal); M79.18 Myalgia, other site; M35.89 Other specified systemic involvement of connective tissue
CPT/HCPCS: 36415; 80053; 87635; 87798; U0003; 82607; 82746; 84443; 86618

== ENCOUNTER 2020-08-17 02:11 | Outpatient (CLI) | payer MEDICAID, SELFPAY ==
--- NOTE | 2020-08-17 12:48 | DI.MAMMO_ITS ---
EXAM: MG MAMMO SCREENING CLINICAL HISTORY: screening. TECHNIQUE: Bilateral full field digital CC and MLO mammographic images were obtained with 3D tomosyn thesis and utilizing computer aided detection (CAD). COMPARISON: Prior mammograms dating back to 2013, the most recent being July 2019. Breast ultrasound July 2019 was reviewed FINDINGS: Fibroglandular tissue is again noted to be dense, this decreasing the sensitivity of the mammogram fo r finding in underlying lesions. In the right breast there is an asymmetric density measuring 9 by 7 millimeters located 6 cm in from the nipple on the CC view having nodular appearance. Ultrasound recommended. There are no malignant -appearing microcalcification groups in this region or elsewhere in either breast No new obvious findings in left breast. Slight indrawing of the anterior aspect of the right breast is noted on the MLO view. IMPRESSION: Dense bilateral fibroglandular tissue. Right breast asymmetric density. Also skin indrawing anterio rly on the right MLO view. Recommend spot compression plus breast ultrasound. BI-RADS Category 0 - Assessment Incomplete: Need additional imaging evaluation Breast Density - Category D - Extremely dense Breast density Category C or D implies that the patient has dense breast tissue. Dense breast tissue can make it harder to find cancer on a mammogram. Dense breast tissue is also associated with an incr eased risk of breast cancer. This information about the result of the mammogram report was provided to the patient to raise their awareness. Use this report when you speak with the patient about their risks for breast cancer, which includes their family history. At that time, you may recommend additional screening tests (Ultrasoun d or MRI) as these tests may add significant information. A negative radiographic report should not delay biopsy if a dominant or clinically suspicious mass is present. Up to ten percent of cancers are not identified on mammography. A negative report may reinforce clinical impression. Adenosis and dense breasts may obscure an underlying neoplasm. False positive reports average 6 to 10%. Patient will receive a letter notifying them of these results.
== END 2020-08-17 02:31 ==
PROVIDERS: PCP Nurse Practitioner Family; Visit Provider Obstetrics & Gynecology Gynecology
DX: Z12.31 Encounter for screening mammogram for malignant neoplasm of breast (principal); R92.8 Other abnormal and inconclusive findings on diagnostic imaging of breast
CPT/HCPCS: 77063; 77067

== ENCOUNTER 2020-08-22 02:44 | Outpatient (CLI) | payer MEDICAID, SELFPAY ==
--- NOTE | 2020-08-22 | DI.MAMMO_ITS ---
EXAM: MG MAMMO SCREEN CALL BACK UNI CLINICAL HISTORY: F/U MAMMO, RT BREAST ASYMMETRIC DENSITY TECHNIQUE: Spot compression views and tomographic imaging were performed. COMPARISON: Recent mammogram of 17 August 2020 and exams from 2014 and 2019. FINDINGS: No suspicious masses or suspicious microcalcifications are seen. No persistent abnormality is seen on the additional views performed. The findings are consistent wit h overlying fibroglandular tissue. There has been no significant change from prior exams. IMPRESSION: BI-RADS Category 1, Negative Yearly screening mammography is recommended. Breast Density - Category C - Heterogeneously dense
== END 2020-08-22 03:04 ==
PROVIDERS: PCP Nurse Practitioner Family; Visit Provider Obstetrics & Gynecology Gynecology
DX: Z12.31 Encounter for screening mammogram for malignant neoplasm of breast (principal); R92.8 Other abnormal and inconclusive findings on diagnostic imaging of breast; N64.59 Other signs and symptoms in breast
CPT/HCPCS: 77063; 77067

== ENCOUNTER 2020-08-24 15:03 | Outpatient (REF) | payer MEDICAID, SELFPAY ==
[2020-08-24 15:25] LABS: Abs Immature Grans 0.01 10^3/uL (0.0-0.06); Absolute Basophil Count 0.08 10^3/uL (0.0-0.2); Absolute Eosinophil Count 0.08 10^3/uL (0.0-0.7); Absolute Lymphocyte Count 2.95 10^3/uL (1.2-3.4); Absolute Neutrophil Count 3.39 10^3/uL (1.2-6.7); Basophils % 1.1; Eosinophils % 1.1; HCT 41.9 % (36.0-46.0); HGB 14.2 g/dL (11.2-15.7); Immature Grans % 0.1; Lymphocytes % 42.1; MCH 30.9 pg (27.0-33.0); MCHC 33.9 % (32.0-36.0); MCV 91.1 fL (80-95); MPV 10.1 fL (8.0-11.0); Monocytes % 7.1; Neutrophils % 48.5; Nucleated RBC 0 %; Platelet Count 332 10^3/uL (130-400); RDW 12.1 % (11.7-14.6); RDW-SD 40.2 fL; WBC 7.01 10^3/uL (4.4-10.8)
[2020-08-24 15:37] LABS: ESR 6 mm//hr (0-20)
[2020-08-24 15:45] LABS: Creatine Kinase 65 U/L (26-192)
[2020-08-24 15:57] LABS: Bilirubin Small (Negative); Blood Trace-lysed (Negative); Clarity Clear (Clear); Glucose Negative (Negative); Ketones 40 mg/dL (Negative); Leukocyte Esterase Negative (Negative); Nitrite Negative (Negative); Specific Gravity >= 1.030 (1.005-1.025); Urobilinogen 0.2 EU/dL (Up TO 0.2); pH 5.5 (5-8)
[2020-08-24 16:00] LABS: C-Reactive Protein < 0.05 mg/dL (0.0-0.3)
[2020-08-24 16:40] LABS: Bacteria Many HPF (Negative); C & S Indicated? No/Sq. Contamination; Casts Negative LPF (Negative); Crystals Negative HPF (Negative); Epithelial Cells Many HPF (Negative); Mucus Heavy (Negative); RBC 0-2 HPF (0-2); WBC 0-2 HPF (0-5)
[2020-08-24 21:44] LABS: Rheumatoid Factor <8.6 IU/mL (<12.0)
[2020-08-25 10:35] LABS: Hepatitis C Ab w Rflx HCV PCR Negative (Negative)
[2020-08-25 10:38] LABS: HIV-1/2 Ag & Ab Screen Negative (Negative)
[2020-08-25 14:59] LABS: ANA Interpretation Negative (Negative)
[2020-08-29 05:40] LABS: EDDP-by GC-MS 450 ng/mL (Cutoff: 100); Methadone Interpretation Positive.; Methadone-by GC-MS 357 ng/mL (Cutoff: 100)
[2020-08-29 12:33] LABS: Amphetamine 12392 ng/mL (Cutoff: 25); Amphetamines Interpretation Positive.; MDA (Ecstasy Metabolite) Negative ng/mL (Cutoff: 25); MDMA (Ecstasy) Negative ng/mL (Cutoff: 25); Phentermine Negative ng/mL (Cutoff: 25); Pseudoephedrine/Ephedrine Negative ng/mL (Cutoff: 25)
[2020-08-30 03:13] LABS: Codeine Negative ng/mL (Cutoff: 25); Dihydrocodeine Negative ng/mL (Cutoff: 25); Hydrocodone Negative ng/mL (Cutoff: 25); Hydromorphone 713 ng/mL (Cutoff: 25); Naloxone Negative ng/mL (Cutoff: 25); Norhydrocodone Negative ng/mL (Cutoff: 25); Noroxycodone Negative ng/mL (Cutoff: 25); Noroxymorphone Negative ng/mL (Cutoff: 25); Opiates Interpretation Positive.
== END 2020-08-24 15:04 | disposition home or self-care (01) ==
LOC: NCHCN 15:03
PROVIDERS: PCP Nurse Practitioner Family; Visit Provider Nurse Practitioner Family
DX: R63.4 Abnormal weight loss (principal); G43.909 Migraine, unspecified, not intractable, without status migrainosus; Z11.59 Encounter for screening for other viral diseases; Z11.4 Encounter for screening for human immunodeficiency virus [HIV]; R82.998 Other abnormal findings in urine
CPT/HCPCS: 80324; 80361; 80362; 82550; 85652; 86803; 87389; 80358; 81003; 81015; 85025; 86038; 86140; 86431

== ENCOUNTER 2020-11-30 02:48 | Outpatient (CLI) | payer MEDICAID, SELFPAY ==
[2020-11-30 08:41] LABS: Calculated LDL 130 mg/dL (<100); Cholesterol 200 mg/dL (<200); HDL Cholesterol 51 mg/dL (40-60); Triglyceride 99 mg/dL (<150)
[2020-12-01 11:37] LABS: Lyme Ab w Rflx to Lyme Confirm Negative (Negative)
== END 2020-11-30 02:49 | disposition home or self-care (01) ==
LOC: LBO 02:48
PROVIDERS: PCP Nurse Practitioner; Visit Provider Nurse Practitioner
DX: Z13.220 Encounter for screening for lipoid disorders (principal); W57.XXXA Bitten or stung by nonvenomous insect and other nonvenomous arthropods, initial encounter; T14.8XXA Other injury of unspecified body region, initial encounter
CPT/HCPCS: 36415; 80061; 86618

== ENCOUNTER 2021-02-17 15:48 | Emergency (ER) | payer MEDICAID, SELFPAY ==
[2021-02-17 15:55] VITALS: BP 112/90; PULSE 117; RESP 20; TEMP 37.4; O2SAT 100
[2021-02-17] MEDS: Sulfameth/Trimeth DS TAB 1 TAB PO (17:26)
[2021-02-17 17:30] VITALS: PULSE 92; O2SAT 99
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
== END 2021-02-17 18:03 | disposition home or self-care (01) ==
PROVIDERS: Emergency Provider Physician Assistant; PCP Nurse Practitioner
DX: L03.221 Cellulitis of neck (principal)
CPT/HCPCS: 99283

== ENCOUNTER 2021-03-02 02:23 | Outpatient (CLI) | payer MEDICAID, SELFPAY ==
[2021-03-02 11:31] LABS: Abs Immature Grans 0.01 10^3/uL (0.0-0.06); Absolute Basophil Count 0.06 10^3/uL (0.0-0.2); Absolute Eosinophil Count 0.04 10^3/uL (0.0-0.7); Absolute Monocyte Count 0.33 10^3/uL (0.1-0.8); Absolute Neutrophil Count 3.53 10^3/uL (1.2-6.7); Eosinophils % 0.6; HCT 41.2 % (36.0-46.0); HGB 13.7 g/dL (11.2-15.7); Immature Grans % 0.2; Lymphocytes % 36.7; MCH 29.4 pg (27.0-33.0); MCHC 33.3 % (32.0-36.0); MCV 88.4 fL (80-95); MPV 9.5 fL (8.0-11.0); Monocytes % 5.3; Neutrophils % 56.2; Nucleated RBC 0 %; Platelet Count 311 10^3/uL (130-400); RBC 4.66 10^6/uL (3.93-5.22); RDW 12.5 % (11.7-14.6); RDW-SD 39.9 fL; WBC 6.27 10^3/uL (4.4-10.8)
== END 2021-03-02 02:24 | disposition home or self-care (01) ==
LOC: LBO 02:23
PROVIDERS: PCP Nurse Practitioner; Visit Provider Nurse Practitioner
DX: J45.998 Other asthma (principal)
CPT/HCPCS: 36415; 85025

== ENCOUNTER 2021-03-02 10:53 | Outpatient (CLI) | payer MEDICAID, SELFPAY ==
--- NOTE | 2021-03-02 11:15 | DI.RAD_ITS ---
Exam(s) XR HAND LT COMPLETE EXAM: XR HAND LT COMPLETE CLINICAL HISTORY: pain for about 2 weeks, no injury, lt hand pain, M79.642 TECHNIQUE: COMPARISON: No exams were available for comparison FINDINGS: Three views were obtained. Bones appear normally mineralized. Cartilaginous joint spaces are well m aintained. No bony or soft tissue abnormality seen. IMPRESSION: RADIATION DOSE DELIVERED: Total DLP
== END 2021-03-02 11:13 ==
PROVIDERS: PCP Nurse Practitioner; Visit Provider Nurse Practitioner
DX: M79.642 Pain in left hand (principal)
CPT/HCPCS: 73130

== ENCOUNTER 2021-03-19 13:22 | Outpatient (REF) | payer MEDICAID, SELFPAY | END 2021-03-19 13:23 | disposition home or self-care (01) | LOC: LBN 13:22 | PROVIDERS: PCP Nurse Practitioner; Visit Provider Nurse Practitioner | DX: L02.01 Cutaneous abscess of face (principal) | CPT/HCPCS: 87077; 87070; 87186 ==

== ENCOUNTER → 2022-02-08 00:01 | Outpatient (CLI) | payer MEDICAID, SELFPAY ==
--- NOTE | 2022-02-08 07:15 | DI.MAMMO_ITS ---
Exam(s) MAMMO SCREENING EXAM: MAMMO SCREENING CLINICAL HISTORY: screening,z23.49. TECHNIQUE: Bilateral full field digital CC and MLO mammographic images were obtained with 3D tomosyn thesis and utilizing computer aided detection (CAD). COMPARISON: Prior mammograms were reviewed, the most recent being July 2020. Left breast ultrasound performed July 2019 was reviewed. FINDINGS: The fibroglandular tissue pattern is again noted be dense in the upper outer quadrants, particular on the left side. Towards the medial aspect of the left breast there is an asymmetric density measuring 9 x 6 millimete rs located 6 cm in from the nipple on the CC view and more evident on prior studies. Asymmetric dens ities medial aspect of the opposite-right breast also more prominent than on prior studies. There are no malignant-appearing microcalcification groups in these regions nor elsewhere in either b reast. There is no significant architectural distortion nor skin thickening-retraction. IMPRESSION: Dense bilateral fibroglandular tissue. Asymmetric densities bilaterally which require further imagin g with spot compression views of each breast and bilateral complete breast ultrasound. BI-RADS Category 0 - Assessment Incomplete: Need additional imaging evaluation Breast Density - Category C - Heterogeneously dense Breast density Category C or D implies that the patient has dense breast tissue. Dense breast tissue can make it harder to find cancer on a mammogram. Dense breast tissue is also associated with an incr eased risk of breast cancer. This information about the result of the mammogram report was provided to the patient to raise their awareness. Use this report when you speak with the patient about their risks for breast cancer, which includes their family history. At that time, you may recommend additional screening tests (Ultrasoun d or MRI) as these tests may add significant information. A negative radiographic report should not delay biopsy if a dominant or clinically suspicious mass is present. Up to ten percent of cancers are not identified on mammography. A negative report may reinforce clinical impression. Adenosis and dense breasts may obscure an underlying neoplasm. False positive reports average 6 to 10%. Patient will receive a letter notifying them of these results.
== END ==
PROVIDERS: PCP Nurse Practitioner; Visit Provider Nurse Practitioner
DX: Z12.31 Encounter for screening mammogram for malignant neoplasm of breast (principal); R92.8 Other abnormal and inconclusive findings on diagnostic imaging of breast
CPT/HCPCS: 77063; 77067

== ENCOUNTER → 2022-02-15 00:14 | Outpatient (CLI) | payer MEDICAID, SELFPAY ==
--- NOTE | 2022-02-15 09:10 | DI.MAMMO_ITS ---
Exam(s) US BREAST RT LIMITED US BREAST LT LIMITED MG MAMMO SCREEN CALL BACK BI EXAM: MG MAMMO SCREEN CALL BACK BI CLINICAL HISTORY: F/U ABNL MAMMO, ASYMMETRIC DENSITIES BILATERALLY. TECHNIQUE: Spot compression digital Mammography views of the bothbreasts with Tomosynthesis followe d by bilateral breast ultrasound. COMPARISON: MG Diagnostic Bilat Mammo from 01/11/2014 MG Diagnostic Left Mammo from 06/15/2014 US US BREAST LT COMPLETE from 08/17/2019 MG MG MAMMO DIAGNOSTIC BI from 08/17/2019 MG MG MAMMO SCREENING from 08/17/2020 MG MG MAMMO SCREEN CALL BACK UNI from 08/22/2020 MG MG MAMMO SCREENING from 02/08/2022 US US BREAST RT LIMITED from 02/15/2022 FINDINGS: RIGHT BREAST: Mammography/Tomosynthesis: Masses/Architectural Distortion: The nodular area in question on the screening exam appears less prom inent on the additional view. Microcalcifictions: No suspicious pleomorphic-type are seen. Skin Thickening/Nipple Retraction: None. Right breast US: Echotexture: Normal appearance of the glandular tissue. Shadowing: No suspicious foci. Cyst: None. Solid lesions: None seen. Ductal dilation: None. LEFT BREAST: Mammography/Tomosynthesis: Masses/Architectural Distortion: None seen. The nodular area screening mammogram appears less promine nt on the additional view. Microcalcifictions: No suspicious pleomorphic-type are seen. Skin Thickening/Nipple Retraction: None. Left breast ultrasound: Echotexture: Normal appearance of the glandular tissue. Shadowing: No suspicious foci. Cyst: None. Solid lesions: None seen. Ductal dilation: None. IMPRESSION: 1. Right breast: No evidence of malignancy is noted. 2. Left breast: No evidence of malignancy is noted. 3. Unless there is more urgent need, follow-up screening mammography is recommended, as per [place] [employer] guidelines. 4. The findings were discussed with the patient on the date of the examination. BI-RADS Category 2 - Benign Findings Breast Density - Category C - Heterogeneously dense A mammogram that demonstrates density of C or D indicates the patient's breast tissue is dense. Dense breast tissue is very common and is not abnormal, but dense breast tissue can make it harder to find cancer on a mammogram. Also, dense breast tissue may increase their breast cancer risk. This informa tion about the result of the mammogram report was provided to the patient to raise their awareness. U se this report when you speak with the patient about their risks for breast cancer, which includes th eir family history. At that time, you may recommend for more screening tests (Ultrasound or MRI) as t hey might be useful based on their risk. A negative radiographic report should not delay biopsy if a dominant or clinically suspicious mass is present. Up to ten percent of cancers are not identified on mammography. A negative report may reinforce clinical impression. Adenosis and dense breasts may obscure an underlying neoplasm. False positive reports average 6 to 10%. Patient will receive a letter notifying them of these results.
== END ==
PROVIDERS: PCP Nurse Practitioner; Visit Provider Nurse Practitioner
DX: Z12.31 Encounter for screening mammogram for malignant neoplasm of breast (principal); R92.8 Other abnormal and inconclusive findings on diagnostic imaging of breast
CPT/HCPCS: 76642; 77063; 77067

== ENCOUNTER 2022-04-29 11:16 | Emergency (ER) | payer MEDICAID, SELFPAY ==
[2022-04-29 11:21] VITALS: BP 117/79; PULSE 100; RESP 18; TEMP 36.6; O2SAT 100
--- NOTE | 2022-04-29 12:44 | DI.RAD_ITS ---
Exam(s) XR FOOT RT COMPLETE EXAM: XR FOOT RT COMPLETE CLINICAL HISTORY: stubbed toe yesterday. TECHNIQUE: 2D digital imaging was performed. Three views. COMPARISON: No exams were available for comparison FINDINGS: BONES: Transverse fracture at the base of the 2nd proximal phalanx with mild medial displacement and angulation. No additional fractures. No bony destructive lesion is seen. JOINTS: No dislocation present. SOFT TISSUE: Normal. IMPRESSION: Fracture of the proximal phalanx of the 2nd toe. DATA REPOSITORY: RADIATION DOSE DELIVERED:
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
[2022-04-29] MEDS: Acetaminophen 500 MG TAB 1000 MG PO (13:43)
[2022-04-29] MEDS: Ibuprofen 600 MG TAB PO (13:43)
[2022-04-29 13:47] VITALS: BP 123/73; PULSE 71; RESP 16; TEMP 36.5; O2SAT 98
--- NOTE | 2022-04-29 13:47 | NUR.NOTE ---
Nursing Note: Referral faxed to Podiatry Aminata Her for toe fracture, in a short walking boot.
--- NOTE | 2022-04-29 14:40 | NUR.NOTE ---
Nursing Note: Referral faxed to Podiatry [facility] for toe fracture, short walking boot, weight bearing.
== END 2022-04-29 13:49 | disposition home or self-care (01) ==
PROVIDERS: Emergency Provider Physician Assistant; PCP Nurse Practitioner
DX: S92.511A Displaced fracture of proximal phalanx of right lesser toe(s), initial encounter for closed fracture (principal); W22.03XA Walked into furniture, initial encounter
CPT/HCPCS: 29515; 99283; 73630

== ENCOUNTER 2022-04-30 10:06 | Outpatient (CLI) | payer MEDICAID, SELFPAY ==
--- NOTE | 2022-04-30 09:15 | DI.RAD_ITS ---
Exam(s) XR TOE RT SECOND EXAM: XR TOE RT SECOND CLINICAL HISTORY: R 2nd toe fracture,S92.701N. TECHNIQUE: 2D digital imaging was performed. Three images were obtained. COMPARISON: No exams were available for comparison FINDINGS: BONES: There is an acute fracture through the proximal metadiaphyseal junction of the proximal phala nx of the 2nd toe. The distal fracture is displaced medially. No bony destructive lesion is seen. JOINTS: No dislocation present. SOFT TISSUE: Normal. IMPRESSION: Acute displaced fracture involving the proximal phalanx of the right 2nd toe. DATA REPOSITORY: RADIATION DOSE DELIVERED:
== END 2022-04-30 10:26 ==
LOC: DI 10:07
PROVIDERS: PCP Nurse Practitioner; Visit Provider Podiatrist Foot & Ankle Surgery
DX: S92.511A Displaced fracture of proximal phalanx of right lesser toe(s), initial encounter for closed fracture (principal); X58.XXXA Exposure to other specified factors, initial encounter
CPT/HCPCS: 73660

== ENCOUNTER 2022-06-03 02:52 | Outpatient (CLI) | payer MEDICAID, SELFPAY ==
--- NOTE | 2022-06-03 14:40 | DI.RAD_ITS ---
Exam(s) XR TOE RT SECOND EXAM: XR TOE RT SECOND CLINICAL HISTORY: R 2nd toe fracture, compare to priors,S92.918A. TECHNIQUE: 2D digital imaging was performed. PA and 2 oblique views. No lateral view. COMPARISON: CR XR TOE RT SECOND from 04/30/2022 FINDINGS: No definite change in alignment of the fracture of the base of the 2nd metatarsal which shows some me dial displacement and lateral angulation. DATA REPOSITORY: RADIATION DOSE DELIVERED:
== END 2022-06-03 03:12 ==
LOC: DI 02:52
PROVIDERS: PCP Nurse Practitioner; Visit Provider Podiatrist Foot & Ankle Surgery
DX: S92.321D Displaced fracture of second metatarsal bone, right foot, subsequent encounter for fracture with routine healing (principal); X58.XXXD Exposure to other specified factors, subsequent encounter
CPT/HCPCS: 73660

== ENCOUNTER 2022-07-09 01:01 | Outpatient (CLI) | payer MEDICAID, SELFPAY ==
--- NOTE | 2022-07-09 07:00 | DI.RAD_ITS ---
Exam(s) XR TOE RT SECOND EXAM: XR TOE RT SECOND CLINICAL HISTORY: F/U RT 2ND TOE FX,S92.911A. TECHNIQUE: 2D digital imaging was performed. COMPARISON: X-rays 06/03/2022 FINDINGS: Previously described fracture in the proximal half the proximal phalanx of the 2nd toe is again noted . Alignment is unchanged. There is some callus formation but fracture line still quite evident. No radiopaque foreign body. No osseous lesions. IMPRESSION: No change in alignment at the fracture site. DATA REPOSITORY: RADIATION DOSE DELIVERED:
== END 2022-07-09 01:21 ==
LOC: DI 01:03
PROVIDERS: PCP Nurse Practitioner; Visit Provider Podiatrist Foot & Ankle Surgery
DX: S92.911D Unspecified fracture of right toe(s), subsequent encounter for fracture with routine healing (principal); X58.XXXD Exposure to other specified factors, subsequent encounter
CPT/HCPCS: 73660

== ENCOUNTER 2023-12-13 11:20 | Emergency (ER) | payer MEDICAID, SELFPAY ==
[2023-12-13 11:23] VITALS: BP 152/92; PULSE 102; RESP 20; TEMP 36.5; O2SAT 99
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
== END 2023-12-13 12:34 | disposition home or self-care (01) ==
PROVIDERS: Emergency Provider Physician Assistant; PCP Nurse Practitioner
DX: M25.512 Pain in left shoulder (principal)
CPT/HCPCS: 20552; J0665

== ENCOUNTER 2023-12-15 10:48 | Emergency (ER) | payer MEDICAID, SELFPAY ==
[2023-12-15 10:56] VITALS: BP 106/69; PULSE 110; RESP 16; TEMP 36.6; O2SAT 100
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
[2023-12-15] MEDS: Gabapentin 300 MG CAP PO (11:52)
[2023-12-15] MEDS: HYDROmorphone 2 MG/ML SYR 1 MG IM (11:53)
--- NOTE | 2023-12-15 12:00 | DI.CT_ITS ---
Exam(s) CT CERVICAL SPINE WO EXAM: CT CERVICAL SPINE WO CLINICAL HISTORY: posterior left sided neck pain. TECHNIQUE: Imaging Protocol: Axial computed tomography images with coronal and sagittal reformatted images were created and reviewed COMPARISON: CT HEAD AND CSPINE W/O CONTRAST from 12/31/2017 FINDINGS: Bones: No acute fracture or subluxation. There is mild reversal of the normal cervical lordosis again seen. Mild age-appropriate degenerative changes are seen in the cervical spine with disc space narr owing and small osteophytes at C6-C7. Soft Tissues: No large disc herniations or significant central spinal canal stenosis is seen on this noncontrast CT scan of the cervical spine. Lung Apices: Clear. IMPRESSION: No acute fracture or subluxation in the cervical spine. RADIATION DOSE DELIVERED: Total DLP Total DLP DATA REPOSITORY: All CT scans at this facility are submitted to the National Radiology Data Registry (NRDR) Dose Index Registry (DIR) with the [employer] (ACR). RADIATION OPTIMIZATION: All CT scans at this facility use at least one of these dose optimization te chniques: automated exposure control; mA and/or kV adjustment per patient size (includes targeted exa ms where dose is matched to clinical indication); or iterative reconstruction.
--- NOTE | 2023-12-15 12:09 | DI.RAD_ITS ---
Exam(s) XR SHOULDER LT COMPLETE 2+V EXAM: XR SHOULDER LT COMPLETE 2+V CLINICAL HISTORY: left shoulder pain. TECHNIQUE: 2D digital imaging was performed of the left shoulder. Six images were obtained. AP, Gr ashey, Y-view and axillary views were obtained. COMPARISON: No exams were available for comparison FINDINGS: BONES: No acute fracture is present. No bony destructive lesion is seen. JOINTS: No dislocation present. The glenohumeral and acromioclavicular joints are unremarkable. SOFT TISSUE: Normal. IMPRESSION: No acute abnormality. DATA REPOSITORY: RADIATION DOSE DELIVERED:
[2023-12-15 12:50] VITALS: BP 139/88; PULSE 81; RESP 15; O2SAT 99
== END 2023-12-15 12:54 | disposition home or self-care (01) ==
PROVIDERS: Emergency Provider Emergency Medicine; PCP Nurse Practitioner
DX: S43.402A Unspecified sprain of left shoulder joint, initial encounter (principal); M54.12 Radiculopathy, cervical region; F17.210 Nicotine dependence, cigarettes, uncomplicated; X58.XXXA Exposure to other specified factors, initial encounter
CPT/HCPCS: 96372; 99284; 72125; 73030; 99283; J1170

== ENCOUNTER 2024-01-09 00:54 | Outpatient (CLI) | payer MEDICAID, SELFPAY ==
--- NOTE | 2024-01-09 07:45 | DI.MRI_ITS ---
Exam(s) MR UPPER EXTREMITY LT WO EXAM: MR UPPER EXTREMITY LT WO CLINICAL HISTORY: pain left shoulder, scapula, ROMBOID PAIN,M25.512,M79.18 TECHNIQUE: Multiplanar multisequence MRI was performed. COMPARISON: CR XR SHOULDER LT COMPLETE 2+V from 12/15/2023 FINDINGS: MARROW/ARTICULATIONS:There is focal marrow edema both in the anterior aspect of the humeral head at t he lesser tuberosity level and more posteriorly in the humeral head subjacent to the insertion site o f the intact infraspinatus tendon. No other signal abnormality in the humeral head and neck. There is some increased signal seen within the lateral 3rd of the ipsilateral clavicle. Minimal mary a evident in the a chromium and the AC joint appears unremarkable. There is no evidence of fracture nor abnormal intraosseous signal in the coracoid process of the scapula nor in the osseous glenoid no r elsewhere in the body of the scapula. No evidence of os acromiale. No significant degenerative ch anges in the AC joint. MUSCLES: There is no evidence of abnormal signal nor mass in the visualized muscles. Rotator cuff musculature: Intact. No abnormal signal. Deltoid muscle: Intact. No abnormal signal Trapezius muscle: Intact. No abnormal signal. Teres major muscle: Intact. No abnormal signal Levator scapula muscle: No abnormal signal Rhomboid minor muscle: No abnormal signal Rhomboid major muscle: No abnormal signal EXTRAMUSCULAR SOFT TISSUES: There is abnormal fluid signal evident in the medial left axilla, as well as in the more medial soft tissues in the left base of left side of the neck extending to the spinal canal. This soft tissue edema is predominately around the subclavian vessels but does extend into t he musculature in the base of the left side of the neck. OTHER: No evidence of glenohumeral joint effusion. No obvious labral tears. No evidence of paralabra l cysts. No obvious tears of the rotator cuff muscles/tendons.. Long and short head biceps tendons a ppear intact. IMPRESSION: 1. No evidence of scapular fracture. Mild increased intraosseous signal noted in the lateral aspect c lavicle without significant degenerative changes in the AC joint and without abnormal signal seen in the a chromium and no evidence of os acromial. 2. No obvious significant findings in the glenohumeral joint and labrum nor obvious rotator cuff tear s. 3. There is fluid-edema signal evident in the base of the left side of the neck and extending along t he neurovascular bundle towards the left axilla. This abnormal signal extends to the level of the cer vical vertebra. Correlation with any recent injury including nerve root sheath injury recommended. If clinically indicated further MRI of the brachial plexus can be performed DATA REPOSITORY:
--- NOTE | 2024-01-09 07:45 | DI.MRI_ITS ---
Exam(s) MR UPPER JOINT LT WO EXAM: MR UPPER JOINT LT WO CLINICAL HISTORY: severe L scapular pain,LT SHOULDER AND ROMBOID PAIN,M25.512,M79.18. TECHNIQUE: Multiplanar multisequence MRI was performed. COMPARISON: No exams were available for comparison FINDINGS: BONES: There is no evidence of a fracture. There is mild edema seen in the lesser tuberosity in the posterior aspect of the humeral head which may represent contusions. JOINTS: The acromioclavicular joint is normal. The glenohumeral joint is normal. No joint effusion. TENDONS: Supraspinatus: Unremarkable. Infraspinatus: Unremarkable. Subscapularis: Unremarkable. Teres Minor: Unremarkable. Biceps and [place]: Unremarkable. MUSCLES: Unremarkable. GLENOID LABRUM: Unremarkable on this noncontrast examination. SOFT TISSUES: Unremarkable. LIGAMENTS: Unremarkable. OTHER: Subacromial and subdeltoid bursae are unremarkable. IMPRESSION: There is no evidence of a labral or rotator cuff tear on this noncontrast examination. Mild edema seen in the humeral head which may represent contusions. No definite evidence of a fractu re. DATA REPOSITORY:
== END 2024-01-09 01:14 ==
LOC: DI 00:54
PROVIDERS: PCP Nurse Practitioner; Visit Provider Nurse Practitioner
DX: M25.512 Pain in left shoulder (principal)
CPT/HCPCS: 73218; 73221

== ENCOUNTER 2024-06-23 03:03 | Outpatient (CLI) | payer MEDICAID, SELFPAY ==
--- NOTE | 2024-06-23 07:08 | DI.US_ITS ---
Exam(s) US BREAST LT LIMITED MG MAMMO DIAGNOSTIC BI EXAM: MAMMO DIAGNOSTIC BI and U/S breast LT limited CLINICAL HISTORY: lt breast lump, n63,25, diagnostic. TECHNIQUE: Craniocaudal and mediolateral oblique Full Field Digital Mammography views with Computer Aided Diagnosis followed by Tomosynthesis and limited left breast ultrasound. COMPARISON: Comparison is made with prior examinations. FINDINGS: Mammography/Tomosynthesis: Masses/Architectural Distortion: No suspicious masses are seen. There are no new or suspicious areas of architectural distortion present. Microcalcifictions: No suspicious pleomorphic-type are seen. Skin Thickening/Nipple Retraction: None. Limited left breast US: Echotexture: Normal appearance of the glandular tissue. Shadowing: No suspicious foci. Cyst: None. Solid lesions: None seen. Ductal dilation: None. IMPRESSION: 1. No evidence of malignancy is noted. 2. Unless there is more urgent need, follow-up screening mammography is recommended, as per [place] [employer] guidelines. 3. The findings were discussed with the patient on the date of the examination. BI-RADS Category 1 - Negative Breast Density - Category C - Heterogeneously dense Breast density Category C or D implies that the patient has dense breast tissue. Dense breast tissue can make it harder to find cancer on a mammogram. Dense breast tissue is also associated with an incr eased risk of breast cancer. This information about the result of the mammogram report was provided to the patient to raise their awareness. Use this report when you speak with the patient about their risks for breast cancer, which includes their family history. At that time, you may recommend additional screening tests (Ultrasoun d or MRI) as these tests may add significant information. A negative radiographic report should not delay biopsy if a dominant or clinically suspicious mass is present. Up to ten percent of cancers are not identified on mammography. A negative report may reinforce clinical impression. Adenosis and dense breasts may obscure an underlying neoplasm. False positive reports average 6 to 10%. Patient will receive a letter notifying them of these results.
== END 2024-06-23 03:23 ==
LOC: DI 03:03
PROVIDERS: PCP Nurse Practitioner; Visit Provider Nurse Practitioner
DX: N63.25 Unspecified lump in the left breast, overlapping quadrants (principal); Z12.31 Encounter for screening mammogram for malignant neoplasm of breast
CPT/HCPCS: 76642; 77062; 77066; G0279